=== PATIENT | male | born 1975 | race Hispanic/Latino ===

== ENCOUNTER 2021-01-29 12:24 | Inpatient (IN) | payer SELFPAY ==
[2021-01-29] MEDS ORDERED: SODIUM CHLORIDE 0.9% 500 ML IVPB ONE (12:28)
[2021-01-29] MEDS ORDERED: SODIUM CHLORIDE 0.9% 1000 ML IV SOLN ONE (12:28)
[2021-01-29] MEDS ORDERED: SODIUM CHLORIDE 0.9% 1000 ML 1,000 ML IV ONE (12:35)
[2021-01-29] MEDS ORDERED: NORepinephrine/NS 4 MG-250 ML 4 MG/250 ML BAG IV SCH (13:00)
--- NOTE | 2021-01-29 13:08 | Emergency Department Report ---
ED CPR HPI - General Chief Complaint: Cardiac Arrest/CPR Stated Complaint: CARDIAC ARREST Time Seen by Provider: 01/29/21 12:33 Source: EMS Mode of arrival: Stretcher Limitations: Altered Mental Status - History of Present Illness Initial Comments: 45-year-old male, history of hep C, liver cirrhosis, presents to ED in cardiac arrest. Patient was recently discharged from hospital approximately 5 days ago following admission for decreased p.o. intake, failure to thrive. Family called EMS as he was found down. Upon EMS arrival, patient had faint carotid pulse, Accu-Chek was in the 30s, D50 was given. Patient then went into asystole. IVs were established, LMA was placed. Patient was given a total of epi x3. He was also defibrillated x1 for rhythm of V. fib. Upon ED arrival patient has palpable pulse present. MD Complaint: found unresponsive Place: home Initial Findings in the Field: unresponsive, agonal ROSC in the Field: No Treatments Prior to Arrival: other airway device (LMA), chest compressions, defribrillated shocks # (X1), epinephrine mgs # (X3), glucose (1 amp D50) - Related Data Previous Rx's Medication Instructions Recorded Last Taken Type oxyCODONE /ACETAMINOPHEN [Percocet 1 tab PO Q4-6H PRN #16 tablet 06/22/14 Unknown Rx 5/325] Allergies Allergy/AdvReac Type Severity Reaction Status Date / Time No Known Allergies Allergy Unverified 06/22/14 17:13 ED Review of Systems ROS: Stated complaint: CARDIAC ARREST Other details as noted in HPI Comment: Unobtainable due to pts medical conditions ED Past Medical Hx - Past Medical History Previous Medical History?: Yes Hx Liver Disease: Yes Additional medical history: Hepatitis C and malnutrition - Surgical History Additional Surgical History: left hand surgery - Social History Smoking Status: Current Some Day Smoker Substance Use Type: None - Medications Home Medications: Home Medications Medication Instructions Recorded Confirmed Last Taken Type oxyCODONE /ACETAMINOPHEN [Percocet 1 tab PO Q4-6H PRN #16 tablet 06/22/14 01/29/21 Unknown Rx 5/325] ED Physical Exam - General Limitations: Altered Mental Status General appearance: obtunded - Head Head exam: Present: atraumatic, normocephalic - Eye Eye exam: Present: scleral icterus - ENT ENT exam: Present: other (Coffee grounds in oropharynx) - Neck Neck exam: Present: normal inspection - Respiratory Respiratory exam: Present: other (No spontaneous breaths) - Cardiovascular Cardiovascular Exam: Present: regular rate, normal rhythm - GI/Abdominal GI/Abdominal exam: Present: distended - Extremities Exam Extremities exam: Present: normal inspection - Neurological Exam Neurological exam: Present: other (GCS 3) - Skin Skin exam: Present: other (Mottled, jaundiced) ED Course Vital Signs 01/29/21 01/29/21 01/29/21 12:24 12:36 12:46 Temperature 92.1 F L Pulse Rate 75 73 85 Respiratory 18 18 Rate Blood Pressure 100/40 76/56 Blood Pressure 100/82 [Right] O2 Sat by Pulse 100 99 Oximetry 01/29/21 01/29/21 01/29/21 13:00 13:15 13:31 Temperature Pulse Rate 85 83 81 Respiratory 18 19 18 Rate Blood Pressure 99/63 88/39 90/51 Blood Pressure [Right] O2 Sat by Pulse 100 93 93 Oximetry 01/29/21 01/29/21 01/29/21 13:45 14:01 14:15 Temperature Pulse Rate 78 76 77 Respiratory 18 19 19 Rate Blood Pressure 80/42 74/41 84/30 Blood Pressure [Right] O2 Sat by Pulse 82 L 92 77 L Oximetry 01/29/21 01/29/21 14:31 14:45 Temperature Pulse Rate 73 73 Respiratory 18 21 Rate Blood Pressure 103/36 100/40 Blood Pressure [Right] O2 Sat by Pulse 69 L 100 Oximetry - Reevaluation(s) Reevaluation #1: 01/29/21 15:18 Spoke with patient's family over the phone. Son, Janes Murray ([phone]), and also pt's sister Angela Avila ([phone]). Explained pt's condition: liver failure, kidney failure, hyperkalemia, coagulopathy, hypotension, pulmo nary edema/ infection, anemia, electrolyte abnormality. They would both like for pt to be comfort measures only, no escalation of care. Pt's son and pt's sister both want pt to be DNR. Son actually set up an initial appt w/ [facility] for today. Hospice rep arrived today just as ambulance pulled off. Patient has been very sick over the last few weeks. Not eating/drinking in the last 5 days. Family state they did not pt to suffer any longer, which is why son called for pt to be on Hospice care. Reevaluation #2: 01/29/21 16:56 Asystole on the monitor. No palpable pulse. Time of 16:52 - Central Line Placement Right Femoral Consent Obtained: emergent situation Time Out Performed: Yes Patient Placed on Monitor/Pulse Ox: Yes MD Prep: mask, gown, gloves Central Line Prep: Chlorhexidine scrub Ultrasound Used for Placement: No Central Line Lumen Inserted: triple Reason for Insertion: Emergency Venous Access Bloods Obtained for Lab: No Central Line Position: good blood return, all ports aspirated, flus, sutured in place with nyl Dressing Applied: Tegaderm Patient Tolerated Procedure: well Complications: none - Intubation Time Out Performed: Yes Sedative: none Laryngoscope: fiberoptic video scope Size: 4 ET Tube Size: 7.5 Tube Secured Depth (cm): 22 Tube Secured Location: lips Tube Placement Confirmation: visualized tube passing t, equal breath sounds bilat, no breath sounds over epi, confirmation by capnometr Patient Tolerated Procedure: well Intubation Complications: none ED Medical Decision Making - Lab Data Result diagrams: 01/29/21 14:40 01/29/21 Unknown - EKG Data -: EKG Interpreted by Mo EKG shows normal: sinus rhythm, intervals, QRS complexes Rate: normal - EKG Data Interpretation: no acute changes, nonspecific ST-T wave alessandra - Radiology Data Radiology results: report reviewed, image reviewed - Medical Decision Making 45-year-old male presents to ED as post cardiac arrest patient. Glucose initially 36, 1 amp of D50 given by EMS. Here in ED Accu-Chek is in the 100s. Patient jaundiced with scleral icterus. History of hep C and liver failure. Patient hypotensive. Central line placed. Patient was placed on a Levophed drip. Chest x-ray shows bilateral infiltrates or pulmonary edema. PO2 71 on ABG. Patient anemic with hemoglobin of 7.7, thrombocytopenic with platelet count of 23. INR is 16.5. Total bili is 5.8 with moderate elevation in AST and ALT. Patient showed signs of acute renal failure with BUN and creatinine of 62 and 2.2, bicarb of 11, and potassium of 6.4. Patient hyponatremic with sodium of 122. I spoke with patient's son and sister over the phone, who elected to provide comfort measures to the patient and to make patient DNR. Time of was called at 1652. - Differential Diagnosis Liver failure, intracranial bleed, ACS, GI bleed Critical Care Time: Yes Critical care time in (mins) excluding proc time.: 35 Critical care attestation.: If time is entered above; I have spent that time in minutes in the direct care of this critically ill patient, excluding procedure time. Critical Care Time: 35 min ED Disposition Clinical Impression: Cardiac arrest, Acute respiratory failure, Hypoglycemia, UTI (urinary tract infection), Thrombocytopenia, Coagulopathy, Acute renal failure, Hyponatremia, Anemia, Metabolic acidosis, Hyperkalemia, Suspected 2019 novel coronavirus infection, Sepsis, Pneumonia Disposition: DC-20 Is pt being admited?: Yes Condition: Stable Time of Disposition: 15:35
[2021-01-29] MEDS ORDERED: CEFEPIME/NS 2 GM/100 ML 2 GM/100 ML BAG IV ONE (13:12)
[2021-01-29] MEDS ORDERED: SODIUM CHLORIDE 0.9% 1000 ML IV SOLN IV ONE (13:12)
--- NOTE | 2021-01-29 13:59 | History and Physical Report ---
History of Present Illness Chief complaint: Unresponsive History of present illness: 45 YO Male with ESLD complicated by Cirrhosis, HCV, Nicotine Dependence, Malnutrition presents to ED for evaluation. Patient is intubated and on ventilator support at the time my evaluation and is unable to provide history. Patient history taken from EMS staff, ED staff, as well as patient's family who is available by telephone for interview. As per family the patient was in his usual state of health at bedtime which was around 2100 hrs. Patient was found by family members to be unresponsive this morning. EMS was notified and upon arrival the patient was found to have asystolic arrest. Patient treated" with ACLS protocol and was intubated in the field with LMA and subsequently transported to [facility] for further care and evaluation of the aforementioned symptoms. The patient was seen and evaluated in the emergency department. All lab and imaging studies reviewed. Upon arrival to the emergency department the patient was found to have acute hypoxemic respiratory failure and a definitive airway was placed. The patient was also found to have septic shock, toxic encephalopathy, as well as bilateral pneumonia. Patient admitted to ICU and initiated on sepsis protocol. Critical care team consulted. No further history is obtainable. No prior admission for review. No medication listed at time of admission for reconciliation. Advanced care planning conducted in ED. Past History Past Medical History: other (See HPI) Past Surgical History: Other (Left hand surgery) Social history: , lives with family, smoking Family history: hypertension Medications and Allergies Allergies Allergy/AdvReac Type Severity Reaction Status Date / Time No Known Allergies Allergy Unverified 06/22/14 17:13 Home Medications Medication Instructions Recorded Confirmed Last Taken Type oxyCODONE /ACETAMINOPHEN [Percocet 1 tab PO Q4-6H PRN #16 tablet 06/22/14 01/29/21 Unknown Rx 5/325] Active Meds: Active Medications Norepinephrine (Levophed Drip 4 Mg/Ns 250 Ml) 4 mg in 250 mls @ 7.5 mls/hr IV TITR KIAH; Protocol Last Admin: 01/29/21 13:15 Dose: 2 mcg/min, 7.5 mls/hr Documented by: Vancomycin HCl 1,500 mg/ (Sodium Chloride) 530 mls @ 333 mls/hr IV ONCE ONE; Protocol Stop: 01/29/21 15:35 Review of Systems ROS unobtainable: due to endotracheal tube, due to mental status Exam - Constitutional Vitals: Temp Pulse Resp BP Pulse Ox 92.1 F L 83 19 88/39 93 01/29/21 12:24 01/29/21 13:15 01/29/21 13:15 01/29/21 13:15 01/29/21 13:15 General appearance: Present: severe distress - EENT Eyes: Present: miosis ENT: hearing decreased - Neck Neck: Present: supple, normal ROM - Respiratory Respiratory effort: labored Respiratory: bilateral: diminished, rhonchi - Cardiovascular Heart Sounds: Present: S1 & S2. Absent: rub, click - Extremities Extremities: pulses symmetrical, No edema Peripheral Pulses: abnormal (Capillary refill greater than 3.5 seconds) - Abdominal General gastrointestinal: Present: soft, distended Male genitourinary: Absent: normal - Integumentary Integumentary: Present: dry, clammy, decreased turgor - Musculoskeletal Musculoskeletal: generalized weakness - Psychiatric Psychiatric: no appropriate mood/affect, no intact judgment & insight, no memory intact - Neurologic Neurologic: CNII-XII intact, no focal deficits, moves all extremities, no gait normal Results - Labs CBC & Chem 7: 01/29/21 14:40 01/29/21 Unknown Assessment and Plan - Patient Problems (1) Septic shock Current Visit: Yes Status: Acute Plan to address problem: Sepsis protocol: Patient initiated on sepsis protocol. Patient initiated on IV antibiotic therapy IV fluid resuscitation therapy, as well as IV pressor support. Patient family elected to make patient DNR. Patient family request comfort measures only at this time. (2) Acute hypoxemic respiratory failure Current Visit: Yes Status: Acute Plan to address problem: Patient intubated on ventilatory support: Patient found to have poor prognosis. Wean vent as tolerated, critical care team consulted. Patient family requests comfort measures only but request to continue current level of care. (3) Toxic metabolic encephalopathy Current Visit: Yes Status: Acute Plan to address problem: Supportive care, poor prognosis. Patient family request comfort measures only at this time. (4) Pneumonia Current Visit: Yes Status: Acute Plan to address problem: Pneumonia protocol: Patient treated with IV antibiotic therapy, supplemental oxygen, supportive care. Patient family elects to make patient DNR. Initiated comfort care measures at this time. (5) DVT prophylaxis Current Visit: Yes Status: Acute Plan to address problem: SCD to BLE while in bed. (6) Advance care planning Current Visit: Yes Status: Acute Plan to address problem: Disease education conducted, care plan discussed, diagnosis discussed, prognosis discussed. Patient family acknowledges patient has poor prognosis. Patient flavia dunn elects to make patient DNR and would like to initiate comfort care measures. +30 minutes.
[2021-01-29] MEDS ORDERED: VANCOMYCIN 1,500 MG in SODIUM CHLORIDE 0.9% 500 ML 500 ML IV ONE (14:00)
--- NOTE | 2021-01-29 14:05 | XRay Report ---
CHEST 1 VIEW INDICATION: cardiac arrest; s/p intubation. COMPARISON: None FINDINGS: Support devices: The endotracheal tube terminates 6 cm superior to the jarek. Consider advancement b y 2 cm. Nasogastric tube terminates in the distal stomach. Heart: Within normal limits. Lungs/Pleura: Diffuse bilateral infiltrates or pulmonary edema is present. No pneumothorax. Additional findings: None. IMPRESSION: Endotracheal tube as described. Diffuse bilateral infiltrates or pulmonary edema. Signer Name: Parker Harris Jr, MD Signed: 01/29/2021 2:01 PM Workstation Name: [id number]
[2021-01-29 14:27] LABS: Bacteria,Urine 2+ /HPF (Negative); Bilirubin,Urine SM (Negative); Blood,Urine LG (Negative); Color,Urine Amber (Yellow); Mucus,Urine FEW /HPF
[2021-01-29] MEDS ORDERED: HYDROmorphone 1 MG/1 ML INJ IV PRN (14:30)
[2021-01-29 14:35] LABS: Ictotest,Urine Negative (Negative)
[2021-01-29 14:45] LABS: INR 16.55 (0.87-1.13)
[2021-01-29 14:50] LABS: Hemoglobin 7.7 gm/dl (11.8-15.2); Mean Corpuscular HGB Conc 33 % (32-34); Red Blood Count 1.86 M/mm3 (3.65-5.03); Red Cell Distribution Width 14.2 % (13.2-15.2)
[2021-01-29 14:51] LABS: Albumin 1.2 g/dL (3.9-5); Bilirubin,Direct 3.9 mg/dL (0-0.2); C-Reactive Protein 1.1 mg/dL (0.00-1.30); Calcium 6.6 mg/dL (8.4-10.2)
[2021-01-29 14:52] LABS: Mean Corpuscular Volume 124 fl (84-94); Platelet Count 23 K/mm3 (140-440)
[2021-01-29] MEDS ORDERED: ACETAMINOPHEN 325 MG TAB PO PRN (15:00)
[2021-01-29] MEDS ORDERED: cefTRIAXone/NS 2 GM/100 ML 2 GM/100 ML BAG IV SCH (15:00)
[2021-01-29] MEDS ORDERED: AZITHROMYCIN/NS 500 MG/250 ML 500 MG/250 ML BAG IV SCH (15:00)
[2021-01-29 15:05] VITALS: BP 100/40
[2021-01-29] MEDS ORDERED: GLYCOPYRROLATE 0.4 MG/2 ML INJ IV PRN (15:24)
[2021-01-29] MEDS ORDERED: ACETAMINOPHEN 650 MG RECT SUPP PR PRN (15:24)
[2021-01-29] MEDS ORDERED: ONDANSETRON 4 MG/2 ML INJ IV PRN (15:24)
[2021-01-29] MEDS ORDERED: MORPHINE 2 MG/1 ML INJ IV PRN (15:24)
[2021-01-29] MEDS ORDERED: diphenhydrAMINE 50 MG/ML VIAL IV PRN (15:24)
[2021-01-29 15:28] LABS: Partial Thromboplastin Time > 240.0 Sec. (24.2-36.6)
[2021-01-29 15:52] LABS: Band Neutrophils # (Manual) 0.3 K/mm3; Platelet Estimate Consistent w Auto; RBC Morphology Normal; Total Cells Counted 100
[2021-01-29] MEDS ORDERED: fentaNYL DRIP Premix 2,000 MCG/100 ML BAG IV SCH (16:00)
--- NOTE | 2021-01-30 10:16 | Electrocardiograph Report ---
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
--- NOTE | 2021-02-05 10:55 | Death Summary ---
Summary - Providers Consults: 01/29/21 13:59 Consult to Physician [CONS] Routine Comment: Consulting Provider: STIVEN GREER Physician Instructions: Reason For Exam: respiratory failure/cardiac arrest Attending: MARK NELSON - summary Date of admission: 01/29/21 13:59 Date of : 01/29/21 Disposition: A CODE BLUE was called. The patient was treated" with ACLS protocol without return of perfusing cardiac rhythm. The patient was found to have asystole on military technician. Neurologic exam reveals fixed and dilated pupils, pulmonary exam revealed absent breath sounds, cardiac exam revealed absent heartbeat. The patient was pronounced at 1652 hrs. Patient family notified. - Final diagnosis (1) Septic shock Note: Final diagnosis: (2) Acute hypoxemic respiratory failure Note: Final diagnosis: (3) Toxic metabolic encephalopathy Note: Final diagnosis: (4) Pneumonia Note: Final diagnosis: (5) DVT prophylaxis Note: Final diagnosis: (6) Advance care planning Note: Final diagnosis:
== END 2021-01-29 20:00 | DRG 871 ==
LOC: ED 12:24 → CC1 13:59
PROVIDERS: ADMIT Internal Medicine; ATTEND Internal Medicine
PROC: 5A1935Z Respiratory Ventilation, Less than 24 Consecutive Hours (ICD-10-PCS; principal; 2021-01-29)
PROC: 0BH17EZ Insertion of Endotracheal Airway into Trachea, Via Natural or Artificial Opening (ICD-10-PCS; 2021-01-29)
PROC: 4A033R1 Measurement of Arterial Saturation, Peripheral, Percutaneous Approach (ICD-10-PCS; 2021-01-29)
PROC: 06HY33Z Insertion of Infusion Device into Lower Vein, Percutaneous Approach (ICD-10-PCS; 2021-01-29)
DX: A41.9 Sepsis, unspecified organism (principal); G92 Toxic encephalopathy; J18.9 Pneumonia, unspecified organism; J96.01 Acute respiratory failure with hypoxia; R65.21 Severe sepsis with septic shock; N39.0 Urinary tract infection, site not specified; E87.2 Acidosis; E87.1 Hypo-osmolality and hyponatremia; N17.9 Acute kidney failure, unspecified; I46.9 Cardiac arrest, cause unspecified; K74.60 Unspecified cirrhosis of liver; F17.210 Nicotine dependence, cigarettes, uncomplicated; E87.5 Hyperkalemia; E16.2 Hypoglycemia, unspecified; D69.6 Thrombocytopenia, unspecified; Z82.49 Family history of ischemic heart disease and other diseases of the circulatory system
CPT/HCPCS: 31500; 36415; 36600; 71045; 80048; 80076; 81001; 82140; 82728; 82805; 82947; 82962; 83615; 83880; 84145; 84484; 85007; 85025; 85379; 85610; 85730; 86140; 87040; 87086; 93005; 93306; 94003; 96365; 96366; 96368; G0378; J0692; J3370; J7030; J7040